=== PATIENT | female | born 1950 | race American Indian/Alaskan Native ===

== ENCOUNTER 2017-06-27 10:08 | Day surgery (SDC) | payer MEDICARE, OTHER ==
[~2017-06-27] VITALS: Ht 152.4 cm; Wt 84.3 kg
[~2017-06-27 10:08] MED LIST: ALBU90OI INH; CHOL10002 PO; CITA20 PO; Ferrous Sulfat325 MG PO; IBUP600 PO; Omeprazole20 M1 PO; ZESTORETIC 20-121 EA PO
[2017-10-13] MEDS ORDERED: IRON150C PO (13:49)
== END 2017-06-27 11:30 | disposition home or self-care (01) ==
LOC: ORSCSDS 10:08
PROVIDERS: Internal Medicine Gastroenterology
PROC: 0DB68ZX Excision of Stomach, Via Natural or Artificial Opening Endoscopic, Diagnostic (ICD-10-PCS; principal; 2017-06-27 11:30)
DX: Z87.11 Personal history of peptic ulcer disease (principal); K44.9 Diaphragmatic hernia without obstruction or gangrene; K22.2 Esophageal obstruction; I10 Essential (primary) hypertension; Z87.891 Personal history of nicotine dependence; Z79.899 Other long term (current) drug therapy
CPT/HCPCS: 88305; 88342; J7120

== ENCOUNTER 2017-10-21 05:40 | Day surgery (SDC) | payer MEDICARE, OTHER ==
[~2017-10-21] VITALS: Ht 152.4 cm; Wt 87.1 kg
[~2017-10-21 05:40] MED LIST changes: +IRON150C PO
== END 2017-10-21 22:48 | disposition home or self-care (01) ==
LOC: ORSCMMR 05:40 → ORD 07:30 → ORSCMMR 07:30
PROVIDERS: Surgery
PROC: 0FT44ZZ Resection of Gallbladder, Percutaneous Endoscopic Approach (ICD-10-PCS; principal; 2017-10-21 07:30)
PROC: 0DNU4ZZ Release Omentum, Percutaneous Endoscopic Approach (ICD-10-PCS; principal; 2017-10-21 07:30)
DX: K80.11 Calculus of gallbladder with chronic cholecystitis with obstruction (principal); N73.6 Female pelvic peritoneal adhesions (postinfective); I10 Essential (primary) hypertension; N18.9 Chronic kidney disease, unspecified; E66.01 Morbid (severe) obesity due to excess calories; Z68.37 Body mass index [BMI] 37.0-37.9, adult; Z79.899 Other long term (current) drug therapy
CPT/HCPCS: J0690; J1100; J2001; J2250; J2370; J2405; J2710; J2765; J3010; J7120

== ENCOUNTER 2018-12-16 11:05 | Day surgery (SDC) | payer MEDICARE, OTHER ==
[~2018-12-16] VITALS: Ht 152.4 cm; Wt 94.1 kg
[~2018-12-16 11:05] MED LIST changes: +ALBU90OI61 INH; +FISH OIL 1,2001 EAC1 PO; +FISH OIL 500 M1 EAC1 PO; +Ferrous Sulfat325 M2 PO; +VITAMIN D35000 UNIT PO
--- NOTE | 2018-12-16 11:45 | NUR ---
12/16/18 1145 Cierra Bloom 1 IV MISS IN RH BY BETTY BLAS THREW VIE 1 GOOD IV IN BY BETTY HEALY
== END 2018-12-16 13:10 | disposition home or self-care (01) ==
LOC: ORSCSDS 11:05
PROVIDERS: Internal Medicine Gastroenterology
PROC: 0DB68ZX Excision of Stomach, Via Natural or Artificial Opening Endoscopic, Diagnostic (ICD-10-PCS; principal; 2018-12-16 12:45)
DX: D50.9 Iron deficiency anemia, unspecified (principal); K25.9 Gastric ulcer, unspecified as acute or chronic, without hemorrhage or perforation; K92.1 Melena; K21.0 Gastro-esophageal reflux disease with esophagitis; K44.9 Diaphragmatic hernia without obstruction or gangrene; K22.2 Esophageal obstruction; I10 Essential (primary) hypertension; J44.9 Chronic obstructive pulmonary disease, unspecified; Z86.73 Personal history of transient ischemic attack (TIA), and cerebral infarction without residual deficits; E66.01 Morbid (severe) obesity due to excess calories; Z68.41 Body mass index [BMI] 40.0-44.9, adult; Z79.899 Other long term (current) drug therapy
CPT/HCPCS: 88305; 88342; J2704; J7120

== ENCOUNTER → 2019-04-20 | Outpatient (CLI) | payer MEDICARE | END | disposition home or self-care (01) | LOC: LAB 17:58 → LAB SHORT 17:58 | DX: R49.0 Dysphonia (principal); R41.89 Other symptoms and signs involving cognitive functions and awareness; R41.0 Disorientation, unspecified | CPT/HCPCS: 87086 ==

== ENCOUNTER 2019-08-03 08:41 | Day surgery (SDC) | payer MEDICARE, OTHER ==
--- NOTE | 2019-08-03 10:39 | NUR ---
PT TOLERATED PROCEDURE WELL. UP TO GET DRESSED AND AMBULATED WITH A STEADY GAIT. IV REMOVED, SITE CLEAR. Discharge instructions reviewed with patient. Patient verbalizes understanding. Copy given to patient to take home. ALL BELONINGS RETURNED TO PATIENT.
== END 2019-08-03 22:50 | disposition home or self-care (01) ==
LOC: ORD 08:41 → CT 08:41 → ORD 09:30 → CT 10:00 → ORD 22:50
DX: I65.29 Occlusion and stenosis of unspecified carotid artery (principal); I12.9 Hypertensive chronic kidney disease with stage 1 through stage 4 chronic kidney disease, or unspecified chronic kidney disease; N18.9 Chronic kidney disease, unspecified; E78.5 Hyperlipidemia, unspecified; Z87.891 Personal history of nicotine dependence; Z79.899 Other long term (current) drug therapy
CPT/HCPCS: 75574; Q9967